=== PATIENT | female | born 1950 | race Caucasian/White ===

== ENCOUNTER → 2021-07-30 12:19 | Outpatient (CLI) | payer MEDICARE, OTHER, SELFPAY ==
[2021-07-30 14:28] LABS: Add Manual Diff / Slide Review NO; Basophils Absolute Auto 100 /uL (0-100); Basophils Percent Auto 0.9 % (0-2); Eosinophils Absolute Auto 200 /uL (0-450); Eosinophils Percent Auto 2.5 % (2-4); Hematocrit 35.5 % (36-46); Lymphocytes Absolute Auto 4000 /uL (1100-4500); Mean Corpuscular HGB Conc 33.8 % (30-36); Mean Corpuscular Hemoglobin 32.9 PG (26-34); Mean Corpuscular Volume 97.3 fL (80-100); Monocytes Absolute Auto 700 /uL (0-900); Monocytes Percent Auto 7.1 % (3-14); Neutrophils Absolute Auto 4700 /uL (1500-7000); Neutrophils Percent Auto 48.5 % (50-75); Platelet Count 316 X10^3/uL (150-400); Red Blood Cell Count 3.65 X10^6/uL (4.0-5.2); White Blood Cell Count 9.7 X10^3/uL (4.5-11.0)
[2021-07-30 14:40] LABS: Hemoglobin A1C% w Est Avg Glu 5.5 % (4.0-6.0)
[2021-07-30 15:37] LABS: BUN Creatinine Ratio 10.9 (6-22); Blood Urea Nitrogen 14 mg/dL (7-17); Calcium 9.1 mg/dL (8.4-10.2); Carbon Dioxide 27 mmol/L (22-32); Chloride 106 mmol/L (98-107); Estimated Glomerular Filt Rate 45 mL/min (>60); Glucose 95 mg/dL (80-110); HEMOLYSIS < 15 (0-50); Potassium 4.3 mmol/L (3.4-5.1); Sodium 140 mmol/L (137-145)
== END ==
PROVIDERS: Family Provider Internal Medicine; PCP Physician Assistant; Referring Provider Orthopaedic Surgery; Visit Provider Orthopaedic Surgery
DX: Z01.818 Encounter for other preprocedural examination (principal); R73.9 Hyperglycemia, unspecified; Z01.812 Encounter for preprocedural laboratory examination; N39.0 Urinary tract infection, site not specified
CPT/HCPCS: 36415; 80048; 83036; 85025; 93005; 93010

== ENCOUNTER → 2021-08-18 12:56 | Outpatient (CLI) | payer MEDICARE, OTHER, SELFPAY ==
[2021-08-18 13:36] LABS: COVID19 -Nasal RAPID Negative (Negative)
== END ==
PROVIDERS: Family Provider Internal Medicine; PCP Physician Assistant; Referring Provider Orthopaedic Surgery; Visit Provider Orthopaedic Surgery
DX: Z20.822 Contact with and (suspected) exposure to COVID-19 (principal)
CPT/HCPCS: 87635; C9803

== ENCOUNTER 2021-08-20 13:25 | Observation (INO) | payer MEDICARE, OTHER, SELFPAY ==
[2021-08-12 12:43] VITALS: BMI 34.3
[2021-08-19] VITALS (10 sets, daily range): BP systolic 103–152; BP diastolic 50–92; PULSE 66–77; RESP 16–18; TEMP 35.7–36.3; O2SAT 93–100; BMI 34.3
--- NOTE | 2021-08-19 08:06 | DI.RAD.S_ITS ---
PROCEDURE: XR KNEE LT 1TO2V INDICATIONS: TKA TECHNIQUE: 2 view(s) of the knee acquired. COMPARISON: [facility], CR, XR KNEE 4+ VIEWS LEFT, 07/30/2021, 10:27. FINDINGS: Bones: Patient is status post knee joint arthroplasty. Hardware components are in expected positions. Visualized bony structures are intact. Soft tissues: Overlying postoperative changes are noted. IMPRESSION: Expected appearance of the left knee total arthroplasty. Dictated by: Agusto Mo M.D. on 08/20/2021 at 8:20 Approved by: Agusto Mo M.D. on 08/20/2021 at 8:21
[2021-08-19] MEDS: VANCOMYCIN 1,000 MG/200 ML PIGGYBACK 200 MG IV (13:10)
[2021-08-19] MEDS: LACTATED RINGERS 1,000 ML 42 ML IV ×2 (13:20→15:57)
[2021-08-19] MEDS: ACETAMINOPHEN 325 MG TABLET 975 MG PO (13:38)
--- NOTE | 2021-08-19 14:01 | PM.PREOP ---
Pre-operative Note COVID-19 COVID-19 status: Negative Interval Note History & Physical reviewed/Exam performed by Physician: Yes Changes to H&P: No
[2021-08-19] MEDS: CEFAZOLIN 2 GM/20 ML SYRINGE IV ×2 (14:35→23:10)
[2021-08-19] MEDS: TRANEXAMIC ACID 1,000 MG VIAL 2000 MG INJ ×2 (14:38→16:40)
--- NOTE | 2021-08-19 14:57 | SUR.OPER ---
Supine on padded OR bed. Pillow under head, arms secured on padded armboards <90 degree abduction. Safety belt across torso. Non-operative leg secured with tape over blanket over lower leg. Operative leg secured in DeMayo positioner. Foam padded brace at thigh of operative leg.
--- NOTE | 2021-08-19 14:58 | SUR.PREOP ---
Block start time [1400] . Monitoring initiated and maintained throughout procedure. Oxygen and medications given per anesthesiologist. Patient remained stable throughout procedure, no adverse reactions noted. Block end time [1407 ].
[2021-08-19] MEDS: BUPIVACAINE 0.25% (PF) 60 ML, EPINEPHrine 0.3 MG INJ (15:20)
[2021-08-19] MEDS: BUPIVACAINE LIPOSOME 266 MG/20 ML VIAL INJ (15:33)
[2021-08-19] MEDS: SODIUM CHLORIDE IRRIG SOLUTION 250 ML, POVIDONE-IODINE SPONGE STICKS 1 APPLIC IRR (16:33)
--- NOTE | 2021-08-19 17:18 | P.OP_ITS ---
Operative Date/Time/Diagnoses Date of procedure: 08/19/21 Time of procedure: 14:10 Pre-op diagnosis: Severe left knee osteoarthritis Post-op diagnosis: same Procedure & Clinicians Procedure: Left total knee arthroplasty Same procedure as scheduled: Yes Indications: The patient has had progressively worsening left knee pain with radiographic changes consistent with arthritis. Non-operative management has failed and the patient has requested total knee replacement. She had severe left knee arthritis and really had moved her knee for about 5 years. She had severe stiffness preoperatively with range of motion from about 20? to about 60-70 degrees. Limits of our ability to completely correct this amount of deformity was discussed in detail. The risks, benefits and alternatives to surgery were discussed with the patient prior to proceeding. Risks discussed included, but were not limited to, failure to relieve pain, stiffness, infection, nerve damage, deep venous thrombosis, pulmonary embolism, stroke, coma, heart attack, permanent paralysis and , as well as the potential need for eventual revision of the prosthetic. Surgeon: Mary Barrera Manager Home Improvement: Angel Cordero Anesthesia Type: General and Spinal Operative Notes Findings: Severe left knee osteoarthritis with a bony block posteriorly as well as severe patellofemoral arthritis with severe restricted range of motion even under anesthesia until a very extensive osteophytes were removed for adequate bone quality and stability. For operative range of motion 0-125 with acceptable tracking of the patella, significantly deficient lateral femoral condyle with severe wear on severe lateral tibial wear. Closure Type: primary Specimen(s): none sent Prosthetic devices, grafts, tissues, transplants, or devices: [employer]rera [employer] Journey BCS 2 size 4 femur, size 5 tibia, +11 constrained poly, 32 x 7-1/2 mm patella Applied: drain(s) Estimated Blood Loss (mL): 250 Blood products transfused: none Tourniquet time (min): 108 Procedure in detail: The patient was seen in the pre-operative area, where the patient identified the left knee as the operative site and this was marked with my initials. The patient received pre-operative antibiotics, and was taken to the operating room and placed on the operative table in the supine position. After satisfactory anesthesia, a multimedia services manager out was performed. The left leg was encircled with a tourniquet about the proximal thigh, and the leg was prepared from the toes to the tourniquet with ChloroPrep in the usual fashion and draped through sterile drapes. The leg was elevated and exsanguinated with Eschmark bandage and the tourniquet inflated to [250] mmHg pressure. Her initial on table range of motion was from about 20? to 70?. The knee was approached through an approximately 18 cm incision centered over the patella and carried into the knee through a medial parapatellar arthrotomy. A portion of the medial and lateral meniscus was resected. Soft tissue was carefully mobilized around the patella the patella was measured with a caliper. There were severe osteophytes around the patella. Her initial parapatellar arthrotomy was carried proximally with slight lateral deviation order to allow for repair of the quad mechanism but adequate mobilization of the patella. Extensive osteophytes were meticulously removed from the patella after carefully freeing soft tissue and removing any hypertrophied synovium in the lateral gutter. The patella was meticulously mobilized. There was a free fragment superiorly and superolateral consistent with a part partial by part up patella. There is minimal soft tissue attachment to this fragment. Bone was resected from the patella and the patellar height was reconstituted with up an appropriate sized patellar component. A cover was then placed on the patella. A small amount of additional medial and lateral meniscus was resected. The distal femur was cut at 5?. A [+2] cut was used. There were severe osteophytes around the femur with marked lateral femoral condylar loss and large osteophytes medially. I meticulously resected a significant portion of osteophytes prior to starting the initial cut. The 2 mm cut did not contact the distal lateral femoral condyle. It looked like we should resect additional bone and an additional 4 mm of bone was resected. This gave adequate medial femoral condylar cut and some exposed bone on the lateral femoral condyle but it was noted that it was deficient. It looked like an appropriate distal femoral cut and the cut was made without difficulty. An extramedullary guide was used for the tibial cut. 10 mm was resected off the least affected side. This resulted in resecting about 1-2 mm in the posterolateral tibia which was the most worn region. An additional lateral release was performed in order to allow adequate lateral spacing. Tibia was prepared. The rotation was assessed. The patient was placed in extension residual medial and lateral meniscus as well as any residual bone was carefully resected. [No] additional tibia was resected. Hemostasis was achieved especially posteriorly. Additional local was injected in to the posterior capsule. The extension gap was assessed and additional releases for gap balancing were performed as necessary. It was checked with the gap bottling line attendant. The femoral block was placed. There were very extensive osteophytes in the posterior medial and posterior lateral femoral region. There was also a massive loose body in the posterolateral compartment. Multiple fragments were removed about the size of a golf ball from both from posterior medially and posterior laterally. The femoral component was trial was placed and the notch was finished. The rotation was assessed and the appropriate size femoral guide was placed on the distal femur and finishing cuts were made. There was no evidence of notching. The anterior, posterior and chamfer cuts were then made. The posterior osteophytes and soft tissues were then removed. The posterior capsule was injected with part of a mixture of 60 ml 0.25% Marcaine mixed with 20 ml Exparel for post operative pain control. The remainder of this mixture was injected into the capsule and subcutaneous tissues during cement curing. The tibial and femoral components were then placed and the knee placed through a range of motion. Range of motion was [0-130], with good stability throughout the range. The trials were then removed, and the tibia was finished. Drill holes and the punch were used to improve cementing in the lateral compartment both on the lateral femoral condyle and the lateral tibial plateau. The bone was prepared with pulsatile lavage, and dried with a sponge. Cement was applied and the final prosthetics placed. Excess cement was removed during and after cement curing. A brief Betadine soak was performed. I did a trial reduction with both the nonconstrained in the constrained polyethylene. She had such severe deformity preoperatively and we had adequately loosen the knee and I felt she was a little better with a constrained polyethylene. After confirming there was no extruded cement posteriorly, the final tibial insert was placed. The knee was copiously irrigated and the tourniquet deflated. Hemostasis was obtained with the Bovie cautery. There was mild bleeding but not severe and a good capsular closure was obtained. A drain was placed and brought out superolaterally. It was clamped. The capsule was closed with interrupted nonabsorbable suture. The subcutaneous layer was closed with barbed sutures, and the skin with a running 3-0 V-Lock suture and skin faustina. 4x4s were used to reinforce around the drain site. A cally dressing was applied and the patient was taken to recovery having tolerated the procedure well. Complications: none Post-operative Condition: stable Disposition: Acute Care Plan for aftercare: The patient will be maintained on a standard total knee replacement protocol with weight bearing as tolerated. The patient will receive aspirin and sequential compression devices for DVT prophylaxis. The patient will be discharged home when safe for the home environment.
--- NOTE | 2021-08-19 17:52 | SUR.PHASEI ---
Pt ready to go upstairs Report given to Erasmo FLOWER .
[2021-08-19] MEDS: ACETAMINOPHEN 325 MG TABLET 650 MG PO (19:10)
[2021-08-19] MEDS: LACTATED RINGERS 1,000 ML 100 ML IV (19:11)
[2021-08-19] MEDS: ALPRAZolam 0.5 MG TABLET 1 MG PO (19:54)
[2021-08-19] MEDS: LITHIUM 150 MG IR CAPSULE PO (20:56)
[2021-08-19] MEDS: GABAPENTIN 600 MG TABLET PO (20:57)
[2021-08-19] MEDS: DOCUSATE 100 MG CAPSULE PO (20:57)
[2021-08-19] MEDS: ASPIRIN EC 81 MG TABLET PO (20:57)
[2021-08-19] MEDS: IBUPROFEN 400 MG TABLET PO (20:57)
[2021-08-19] MEDS: OXYCODONE IR 10 MG TABLET PO (20:58)
[2021-08-19] MEDS: lamoTRIgine 100 MG TABLET 150 MG PO (21:01)
[2021-08-20] MEDS: IBUPROFEN 400 MG TABLET PO ×5 (00:03→20:25)
[2021-08-20] MEDS: OXYCODONE IR 10 MG TABLET PO ×6 (00:03→20:25)
[2021-08-20] MEDS: ACETAMINOPHEN 325 MG TABLET 650 MG PO ×3 (00:04→12:12)
[2021-08-20 04:53] LABS: Hematocrit 31.5 % (36-46); Hemoglobin 10.6 g/dL (12.0-16.0)
[2021-08-20] MEDS: LACTATED RINGERS 1,000 ML 100 ML IV (05:15)
[2021-08-20 05:39] VITALS: BP 123/76; PULSE 76; RESP 16; TEMP 36.3; O2SAT 99
[2021-08-20] MEDS: CEFAZOLIN 2 GM/20 ML SYRINGE IV (07:04)
--- NOTE | 2021-08-20 07:50 | P.DS_ITS ---
History of Present Illness History of Present Illness Date Patient Seen: 08/20/21 Time Patient Seen: 07:51 Chief complaint: Left knee pain Narrative: Patient states her pain is mild. Denies fever or chills. No nausea /vomiting. Patient does have assistance at home Discharge Providers Provider Discharge Date: 08/20/21 Primary care physician: Whitney Lowry PA-C Consults: 08/19/21 08:06 Consult to Anesthesiology Routine Comment: Consulting Provider: Anesthesiologist Reason for consultation: Regional block for post operative pain control 08/19/21 17:52 Consult to Discharge Planning Routine Comment: Consult to Physical Therapy Evaluate & Treat Comment: Physician Instructions: postop TKA protocol Consult to Respiratory Therapy Evaluate & Treat Comment: Physician Instructions: Evaluate and treat 08/19/21 18:27 Consult to Dietitian, Adult Routine Comment: Reason For Exam: post op care Discharge provider: Angel Cordero PA-C Summary Hospital Course Discharge Diagnosis: Severe left knee osteoarthritis Hospital Course: Left total knee arthroplasty Same procedure as scheduled: Yes Indications: The patient has had progressively worsening left knee pain with radiographic changes consistent with arthritis. Non-operative management has failed and the patient has requested total knee replacement.? She had severe left knee arthritis and really had moved her knee for about 5 years.? She had severe stiffness preoperatively with range of motion from about 20? to about 60-70 degrees.? Limits of our ability to completely correct this amount of deformity was discussed in detail.? The risks, benefits and alternatives to surgery were discussed with the patient prior to proceeding. Risks discussed included, but were not limited to, failure to relieve pain, stiffness, infection, nerve damage, deep venous thrombosis, pulmonary embolism, stroke, coma, heart attack, permanent paralysis and , as well as the potential need for eventual rev ision of the prosthetic. Surgeon: Mary Barrera Information Technology Analyst: Angel Cordero Anesthesia Type: General and Spinal Operative Notes Findings: Severe left knee osteoarthritis with a bony block posteriorly as well as severe patellofemoral arthritis with severe restricted range of motion even under anesthesia until a very extensive osteophytes were removed for adequate bone quality and stability.? For operative range of motion 0-125 with acceptable tracking of the patella, significantly deficient lateral femoral condyle with severe wear on severe lateral tibial wear. Closure Type: primary Specimen(s): none sent Prosthetic devices, grafts, tissues, transplants, or devices: [employer] Journey BCS 2 size 4 femur, size 5 tibia, +11 constrained poly, 32 x 7-1/2 mm patella Applied: drain(s) Estimated Blood Loss (mL): 250 Blood products transfused: none Tourniquet time (min): 108 Patient admitted to the hospital for the above-mentioned procedure. Patient consented to the same. Patient taken operating room underwent left total knee arthroplasty on August 19, 2021. Patient back in her room recovering well as in stable condition. Patient will mobilize with physical therapy this morning. Patient will be discharged home today after physical therapy if safe for home environment. Exam Vital Signs (past 8 hours): - 08/20/21 05:39 Temperature 97.3 F L Pulse Rate 76 Respiratory Rate 16 Blood Pressure 123/76 Pulse Oximetry 99 Oxygen Delivery Method Room Air Oxygen Flow Rate 0 Narrative Exam Narrative: 70-year-old female resting comfortably in bed in no apparent distress. Cally dressing on and functioning. Scant drainage from the wound VAC site. Motor functions intact bilateral lower extremities. Sensation grossly intact to light touch bilateral lower extremities. Objective Labs Result Diagrams: 08/20/21 04:23 Labs: Laboratory Results - last 24 hr 08/20/21 04:23 Hgb 10.6 L Hct 31.5 L PFSH Medical History Abdominal pain Depression Easy bruisability Fibromyalgia HTN (hypertension) HX: benign breast biopsy Osteoarthritis Pneumonia (~2011) Short-term memory loss (2009) Stomach tumor (benign) TBI (traumatic brain injury) (2009) Surgical History History of section History of hysterectomy History of left cataract extraction Hx of cholecystectomy Hx of LASIK Social History household members: none Smoking Status: Never smoker alcohol intake: never Discharge Assessment & Plan Assessment and Plan Assessment: Patient progressing as expected status post left total knee arthroplasty Plan of Treatment: Mobilize with physical therapy Patient be maintained on total knee protocol Multimodal pain management Discharge home today after physical therapy if safe for home environment. Discharge Plan Discharge Plan Patient Disposition: Home Discharge orders & Medications Discharge Orders: Discharge (Order); Ordered 08/20/21 Ordered By: Angel Cordero Prescriptions: New acetaminophen 325 mg Tablet 650 mg PO Q6HR Qty: 60 0RF polyethylene glycol 3350 17 gram Powder In Packet 17 gm PO DAILY PRN (Reason: Constipation) Qty: 20 0RF aspirin 81 mg Tablet,Delayed Release (Dr/Ec) 81 mg PO BID Qty: 60 0RF ibuprofen 400 mg Tablet 400 mg PO Q4HR Qty: 60 0RF oxycodone 5 mg Tablet 5 mg PO Q3HR PRN (Reason: Pain, Moderate (4-6)) Qty: 60 0RF Continued losartan 50 mg Tablet 50 mg PO DAILY 0RF gabapentin 600 mg Tablet 600 mg PO BID 0RF alprazolam 1 mg Tablet 1 mg PO Q8H 0RF lamotrigine 100 mg Tablet 100 mg PO SEEINSTR 0RF Rx Instructions: 100mg qam, 150mg qpm rosuvastatin 10 mg Tablet 10 mg PO DAILY 0RF lithium carbonate 150 mg Capsule 150 mg PO BEDTIME 0RF Follow up/Referrals: Whitney Lowry PA-C [Primary Care Provider] - Mary Barrera MD [Physician] - (2 weeks) Diet/Activity/Treatments Diet: Diet as Tolerated Activity: Weight-bearing as tolerated Cold/Heat Therapy: Apply ice to knee as needed Skin/Wound/Dressing Care Report to your healthcare provider any signs of infection, such as:: chills, fever, increased pain, unusual drainage and unusual redness Dressing: Keep dressing clean and dry, Terry wrap may be removed in 48-72 hours, leave dressing in place, cally dressing will automatically turned off in 5-7 days, cut tubing at base of dressing and cover with x-ray and he said from cally box, monitor can be thrown away and batteries recycled. Visit Report/Discharge Packet Instructions: DI for Knee Replacement Stand Alone Forms: Surgery Discharge Discharge Data Primary Care Provider: Whitney Lowry Attending Provider: Mary Barrera
[2021-08-20] MEDS: ONDANSETRON 4 MG/2 ML INJ IV ×2 (08:27→23:39)
[2021-08-20] MEDS: ASPIRIN EC 81 MG TABLET PO ×2 (08:30→20:25)
[2021-08-20] MEDS: ATORVASTATIN 20 MG TABLET PO (08:30)
[2021-08-20 08:31] VITALS: BP 116/66; PULSE 77; RESP 18; TEMP 36.8; O2SAT 99
[2021-08-20] MEDS: DOCUSATE 100 MG CAPSULE PO ×2 (08:31→20:24)
[2021-08-20] MEDS: GABAPENTIN 600 MG TABLET PO ×2 (08:31→20:24)
[2021-08-20] MEDS: lamoTRIgine 100 MG TABLET PO (08:31)
--- NOTE | 2021-08-20 08:33 | CM.DANOTE ---
DCP: Payor: Medicare PCP: Whitney Flores MD Pt is a 70 y.o. M who was admitted for post left total knee arthroplasty. Pt has a histroy of arthritis, edpression, fibromyalgia, hypertension, and obesity. Pt has been having pain in the left knee and therefore MD recommends this procedure. DCP met with pt bedside this AM. Pt was eating breakfast but states she is nauseous and might need to throw up. RN provided bag to pt. ENTRY ANALYST helped with cleaning up pt. DCP verbalized she would come back but pt states she is ok to talk. DCP explained role. Pt states she lives in a 55 y.o and older community and pays for [facility] services such as nursing who would help her if she needed it. Pt states she lives alone but relies on friends for support. Pt states she has been driving but recently stopped due to pain. Pt states that when she is able to discharge, her friend Yudi will pick her up. Pt states MD came by this morning and said depending on how pt does with PT, she would be able to discharge today. Pt states she hasn't used HH before but if needed she would like that. LLUSTRE updated and instructed pt to call. DCP called [facility] to inquire about services provided. [facility] states that they would help with ADL's but if PT/Ot was needed, HH would need to be ordered. DCP verbalized understanding. DCP to continue to follow pt case. P: Per MD, if pt able to work with PT and they feel she could go home, pt can be discharged today. Pt plan is home via Yudi zepeda POV with possible HH. Florecita Acevedo RN/SANGEETHA Discharge Planning/Care Management CM Discharge Assessment Start: 08/20/21 08:29 Freq: Status: Active Protocol: Document 08/20/21 08:30 MARY GRACE (Rec: 08/20/21 08:31 MARY GRACE [id number]) Discharge Planning Assessment Assigned Continuity Writer Florecita Acevedo RN/SANGEETHA Advance Directives? No History Provided By Patient Prior Living Arrangements Apartment/Condo Comment 57 y.o. and older community in [place] Household Members none Type of transporation used prior to Drives own vehicle admit Comment But recently stopped last week . Relies on friends Independent with ADL's Yes Is patient alert and oriented? Yes Caregiver for Another No Discharge Plan Home Transportation Arrangement POV via Friend Yudi Referrals Initiated None needed Additional Comment At this time. Pending PT eval . Whiteboard Updated in Patient Room with Yes name and ext. # of Continuity Writer Comment Instructed to call Review Status In Process Please Provide Date Initial DC 08/20/21 Assessment Was Performed Next Review Type Continued Stay Review Pre-Anesthesia Assessment Start: 08/12/21 12:43 Freq: Status: Active Protocol: Document 08/12/21 12:43 CAB (Rec: 08/12/21 13:41 CAB [id number]) Pre-Anesthesia Assessment Patient Information Reviewed Via Phone Assessment Assessment Completed With Patient Diagnostic Results BMP/CMP,CBC,Urinalysis Comment Labs/ECG @ [facility] 07/30/21, COVID screen @ 08/18/21 Seen Specialist in Last 12 Months Yes Specialist Seen Orthopedist Primary Language Slovenian Layout Man Required No Height 162.56 cm Weight 90.718 kg Body Mass Index (BMI) 34.3 Hearing Ability Normal Visual Assist Magnifying Glass Dentition Type Teeth, Natural Present Barriers to Learning None Hx Anesthesia Reactions Yes: I have a real problem waking up and I'm freezing Additional comment Pt DOES NOT want a spinal Hx Family Anesthesia Reaction No Hx Malignant Hyperthermia No Hx Blood Transfusions No Anesthesia Review Requested No alcohol intake never Smoking Status Never smoker Substance Use Type marijuana Comment Advised not to smoke marijuana 24 hours prior to surgery Pain Present Pain Reported Musculoskeletal Symptoms Abnormal Gait,Difficulty Walking,Joint Pain History of Falling (Recent or History of Yes ) Patient is completely paralyzed or No completely immobile Prosthesis or Orthotic Device Front Wheel Walker Mental Status Oriented to own ability Is patient on oxygen? No Does patient have CADE/SOB No Hx Sleep Apnea No Currently Taking a Beta Cherelle No Can You Climb a Flight of Stairs Without Yes SOB Hx Chest Pain No Hx SOB No Hx Syncope or Dizziness No Anti-Coagulant Therapy No Has a Bronc Breaker No Cardiac Testing No Hx Pacemaker/ICD No Pacemaker Rep Required? No Cardiac Clearance Received Not Applicable Diet Type At Home Regular dysphagia No Gastrointestinal Symptoms Abdominal Pain,Diarrhea Urinary Catheter Present No Hx Urinary Self Catheterization No Diabetes No Patient No Lactating No Presence of External or Internal Medical Yes: Left eye IOL Devices Have you had any close contact with No someone diagnosed with COVID-19? Received a COVID vaccine? Yes: Declines booster at present Marital Status Lives With none Prior Living Arrangements Apartment/Condo Does the Patient Have Assistance After Yes: Residential care unit Surgery where she lives w/nurses Patient Discharge Plan Description Other Comment Pt not advised on length of stay per surgeon Feels Safe in Current Environment Yes Been Physically Hurt or Threatened By a No Person in Current Environment Do you have thoughts of harming yourself None or others? Are you currently considering suicide? No Do you have a plan to hurt yourself or No Plan others? Do You Have Any Spiritual Beliefs That No May Affect Your HC Choices? Do You Have Any Cultural Practices That No May Affect Your HC Choices? Comment Alevism Who Can We Speak to About Patient's Care Family, friends Identifying Code for Release of Patient Declines to issue Information Health Care Proxy/Next of Kin Yudi Thomas (good friend) Health Care Proxy Emergency Contact Name Yudi Thomas (good friend) Emergency Contact Advance Directives? No Power of Belt Puncher No PAC Instructions Do not shave/clip surgical site,Durable medical equipment ,Medications to take/avoid, Nasal antibiotic,No ETOH/ petroleum product on skin DOS, NPO,Post-op transportation,Pre -surgical wash,Sensory aids, Sturdy shoes/comfortable clothes,Do not bring valuables and remove jewelry
--- NOTE | 2021-08-20 08:45 | PT.IIE ---
Current Diagnoses Unilateral primary osteoarthritis, left knee (08/19/21) Surgery Performed Operation Date: 08/19/21 14:30 Actual Procedures p Total Knee Arthroplasty(Left) - Mary Barrera MD Medical History (Last Reviewed 08/20/21 @ 07:53 by Angel Cordero PA-C) Abdominal pain Depression Easy bruisability Fibromyalgia HTN (hypertension) HX: benign breast biopsy Osteoarthritis Pneumonia (~2011) Short-term memory loss (2009) Stomach tumor (benign) TBI (traumatic brain injury) (2009) Physical Therapy Inpatient Evaluation/Re-Eval M1 PT/OT-IP Prior Functional Status Start: 08/20/21 11:33 Freq: NEEDED Status: Active Protocol: Document 08/20/21 08:45 AB (Rec: 08/20/21 11:46 AB [id number]) Medical Review Prior Functional Status Medical History Reviewed Yes Communication able to make needs known Mobility and Gait pt stated that she is independent with all mobilities and ambulation without AD Social History Household Members none Living Arrangements Apartment/Condo Number of Stairs To Enter/Railing? pt stated that she lives in a senior housing community and has a residential care unit where there is a nurse to assist residents that needs assistance. pt stated that she rented an studio apartment for ~ 1 month for the residential care unit. no steps to enter but has to ambulate quite a ways Home Environment Standard Height Toilet,Walk in Shower Home Equipment Front Wheel Walker,Raised Toilet Seat Without Armrests, Grab Bars In Shower Additional Social History Comment has toilet safety frame M2 PT-IP Current Condition Start: 08/20/21 11:33 Freq: NEEDED Status: Active Protocol: Document 08/20/21 08:45 AB (Rec: 08/20/21 11:46 AB [id number]) Physical Therapy Current Condition Current Condition Evaluation Date 08/20/21 Treatment Diagnosis s/p L TKA; difficulty in walking Onset Date 08/19/21 M3 PT-IP Subjective Start: 08/20/21 11:33 Freq: NEEDED Status: Active Protocol: Document 08/20/21 08:45 AB (Rec: 08/20/21 11:46 AB [email or web address]) Subjective Physical Therapy Visit Type Type Initial Evaluation Visit Start Time 08:45 Visit Stop Time 09:35 Total Visit Minutes 50 Number of ENGAGEMENT SPECIALIST Visits 0 Physical Therapy Visit Comments Patient Comments agreeable to do PT Therapy Pain Assessment Pain When Pain Assessed At Rest Pain Present Pain Present Pain Reported Location Left Knee Intensity 7 Scale Used Numeric (0 - 10) Pain Management Techniques Apply Cold,Distraction, Modification of Treatment,Re- positioning,Timing of Activity with Medications M4 PT-IP Mobility and Gait Start: 08/20/21 11:33 Freq: NEEDED Status: Active Protocol: Document 08/20/21 08:45 AB (Rec: 08/20/21 11:46 AB [email or web address]) PT-Bed Mobility Assessment Supine to Sit Supine to Sit Moderate Assistance Sit to Supine Sit to Supine Moderate Assistance PT-Transfer Assessment Sit to and From Stand Sit to and from Stand Maximum Assistance,1 Person Assistance,Use of Upper Extremities Equipment Transfer Assistive Device Gait Belt,Front Wheeled Walker Orthotic/Prosthetic Devices or Brace: No Transfers Transfer Destination Bed,Chair Transfer Ability Level of Assist 1 Person Assistance,Use of Upper Extremities Comments Mobility Comments completed supine to sit mod A and cues. able to sit on EOB SBA. completed sit to stand max A and step transfer to chair mod A using FWW. agreed to ambulate more in room using FWW mod A 20 ft. (+) R hip/ knee crepitus. pt stated that she needs surgery on RLE as well. pt agreed to sit on the chair. positioned. ice pack provided. call light and table placed within reach. Gait Assessment Gait Gait Assistance Required: Moderate Assistance Distance (Feet) 20 Able to Maintain Weight Bearing Status Yes During Gait Assistive Devices Assistive Device Gait Belt,Front Wheeled Walker Orthotic/Prosthetic Devices or Brace: No Gait Deviations General Gait Pattern Antalgic,Decreased Stride Length,Decreased Feet Clearance Factors Limiting Gait Function Factors Limiting Gait Function Decreased Activity Tolerance, Decreased Strength,Pain,Poor Balance,Poor Safety Awareness PT-Balance Assessment Sitting Balance and Reactions Static Sitting Balance Ability Good Dynamic Sitting Balance Ability Good Standing Balance and Reactions Static Standing Balance Ability Fair Dynamic Standing Balance Ability Fair Device Used FWW M5 PT-IP Objective Assessments Start: 08/20/21 11:33 Freq: NEEDED Status: Active Protocol: Document 08/20/21 08:45 AB (Rec: 08/20/21 11:46 AB [email or web address]) Orientation Orientation/Cognition Level of Alertness Alert Orientation Name,Place,Situation Language Function Ability No Deficits Noted Safety Awareness Decreased Safety Awareness Memory Description No Deficits Noted Gross Range of Motion Lower Extremity ROM Impairments R knee flexion: ~ 50 deg R knee extension: ~ 30 deg less to 0 Strength Comments Strength Comments LLE: 3+/5 RLE: 4-/5 Sensation Assessment Sensation Gross Sensation WNL Muscle Tone Muscle Tone WNL Yes M6 PT-IP Treatment Start: 08/20/21 11:33 Freq: NEEDED Status: Active Protocol: Document 08/20/21 08:45 AB (Rec: 08/20/21 11:46 AB [id number]) Physical Therapy Treatment Education Education Provided Precautions,Weight Bearing Status,Post-Op Packet,Safety M7 PT-IP Assessment and Plan Start: 08/20/21 11:33 Freq: NEEDED Status: Active Protocol: Document 08/20/21 08:45 AB (Rec: 08/20/21 11:46 AB [email or web address]) PT Summary Assessment and Plan Potential Rehabilitation Potential Fair Status of Condition at Evaluation Evolving Summary Impairments Pain,ROM,Strength,Balance, Coordination,Sensation,Tone, Cognition,Bed Mobility, Transfers,Gait,Activity Tolerance Assessment Summary pt requiring mod to max A with mobility using FWW. d/c plan depending on progress. pt stated that she arranged to go to a residential care unit in her community and a nurse will be able to assist as needed with a call light. will continue to assess progress for safe d/c plan. Goals Bed Mobility Goal Independent Transfer Goal Independent,Front Wheeled Walker Gait Goal Independent,Front Wheel Walker Gait Distance 200 Days to Meet Goals 10 Frequency of Treatment Frequency Of Treatment Twice a Day Treatment Plan Physical Therapy Treatment Plan Bed Mobility Training,Transfer Training,Gait Training, Therapeutic Exercise,Balance Retraining,Post Op Education, Discharge Planning,Hot or Cold Pack,Neuromuscular Re-ed, Coordination Retraining,Manual Therapy Weight Bearing Status Weight Bearing Status Weight Bear as Tolerated Allowed Weight Bearing Amount (enter % LLE WBAT or #) (%) Recommendations To Nursing Amount of Assist Needed 1 Person Assist Discharge Recommendations PT Discharge Recommendations Home with 05/10 Assist Available,Home Health Transportation Needs at Discharge Private Vehicle,Wheelchair/ Cabulance
[2021-08-20] MEDS: LOSARTAN 50 MG TABLET PO (09:37)
[2021-08-20] MEDS: ALPRAZolam 0.5 MG TABLET 1 MG PO (09:45)
--- NOTE | 2021-08-20 12:22 | DIET.CONS ---
Dietary Consultation Note Admission Date: Assessment: 70y F d1 s/p knee surgery referred to nutrition for acute morning emesis. RD alerted pt had N/V when breakfast was delivered this am. Pt tolerating cold diced peaches at time of RD visit, pt had been medicated c zofran. Pt on narcotic pain meds. Ht: 162.56 cm Wt: 90.718 kg BMI: 34.3 Last BM: 08/19/21 (08/19/21 23:43) MNA: 8 Pablo Score: 20 Diet: 08/19/21 Dinner General (Regular) Diet Diet Modifications: Labs: Hgb 10.6 g/dL (12.0-16.0) L 08/20/21 04:23 Hct 31.5 % (36-46) L 08/20/21 04:23 Nutrition Diagnosis: none Interventions: 1. Educated pt on post-surgical and medication related N/V as well as hot foods having stronger scents which can aggravate nausea. Helped pt order lunch and dinner today, cold items. Educated pt on need for protein for healing. Sending ONS c lunch to support protein needs. Pt given suggestions for high PRO easy to prepare options for two weeks after d/c. Electronically Signed by: Eden Feliciano 08/20/21 12:22 Clinical Dietitian [address] [address]
--- NOTE | 2021-08-20 12:41 | CM.DPNOTE ---
Faxed referral to [facility] per Florecita. Dana Jorge CM Assist.
[2021-08-20 12:50] VITALS: BP 107/63; PULSE 79; RESP 16; TEMP 36.2; O2SAT 100
--- NOTE | 2021-08-20 13:10 | PT.IPTN ---
Current Diagnoses Unilateral primary osteoarthritis, left knee (08/19/21) Surgery Performed Operation Date: 08/19/21 14:30 Actual Procedures p Total Knee Arthroplasty(Left) - Mary Barrera MD Physical Therapy Treatment Note M2 PT-IP Current Condition Start: 08/20/21 11:33 Freq: NEEDED Status: Active Protocol: Document 08/20/21 08:45 AB (Rec: 08/20/21 11:46 AB [email or web address]) Physical Therapy Current Condition Current Condition Evaluation Date 08/20/21 Treatment Diagnosis s/p L TKA; difficulty in walking Onset Date 08/19/21 M3 PT-IP Subjective Start: 08/20/21 11:33 Freq: NEEDED Status: Active Protocol: Document 08/20/21 13:10 AB (Rec: 08/20/21 14:44 AB [email or web address]) Subjective Physical Therapy Visit Type Type Treatment Note Visit Start Time 13:10 Visit Stop Time 13:30 Total Visit Minutes 20 Number of SIGNAL MAINTENANCE TECHNICIAN Visits 0 Physical Therapy Visit Comments Patient Comments agreeable to do PT Therapy Pain Assessment Pain When Pain Assessed At Rest Pain Present Pain Present Pain Reported Location Left Knee Intensity 7 Scale Used Numeric (0 - 10) Pain Management Techniques Distraction,Elevation, Modification of Treatment, Timing of Activity with Medications M4 PT-IP Mobility and Gait Start: 08/20/21 11:33 Freq: NEEDED Status: Active Protocol: Document 08/20/21 13:10 AB (Rec: 08/20/21 14:44 AB [email or web address]) PT-Bed Mobility Assessment Supine to Sit Supine to Sit Standby Assistance PT-Transfer Assessment Sit to and From Stand Sit to and from Stand Maximum Assistance,1 Person Assistance,Use of Upper Extremities Equipment Transfer Assistive Device Gait Belt,Front Wheeled Walker Orthotic/Prosthetic Devices or Brace: No Transfers Transfer Destination Bedside Commode Transfer Ability Level of Assist Maximum Assistance,1 Person Assistance,Use of Upper Extremities Comments Mobility Comments pt completed supine to sit SBA . completed sit to stand x 4 attempts max A with one LOB posteriorly on initial standing. pt presents with stooped posture and increase L knee flexion in standing. (+) R hip/knee crepitus during mobility. completed ambulation in room using FWW mod to max A and max cues ~ 25 ft. presents with unsteady gait with occasional side tilting or LOB requiring max A for steadiness. pt requested to use the toilet but refused to walk to the toilet. stated that she will use the bedside commode. pt sat on EOB. positioned bedside commode. pt completed sit to stand max A and step transfer to bedside commode mod to max A and max cues using FWW. pt wants to be left alone. call light placed within reach. informed nurse. Gait Assessment Gait Gait Assistance Required: Moderate Assistance,Maximum Assistance,1 Person Assist Distance (Feet) 25 Able to Maintain Weight Bearing Status Yes During Gait Assistive Devices Assistive Device Gait Belt,Front Wheeled Walker Orthotic/Prosthetic Devices or Brace: No Gait Deviations General Gait Pattern Antalgic,Decreased Stride Length,Decreased Feet Clearance,Flexed Trunk,Step-to Gait Factors Limiting Gait Function Factors Limiting Gait Function Decreased Activity Tolerance, Decreased Strength,Difficulty Following Directions,Limited Range of Motion,Pain,Poor Balance,Poor Safety Awareness M5 PT-IP Objective Assessments Start: 08/20/21 11:33 Freq: NEEDED Status: Active Protocol: Document 08/20/21 08:45 AB (Rec: 08/20/21 11:46 AB [email or web address]) Orientation Orientation/Cognition Level of Alertness Alert Orientation Name,Place,Situation Language Function Ability No Deficits Noted Safety Awareness Decreased Safety Awareness Memory Description No Deficits Noted Gross Range of Motion Lower Extremity ROM Impairments R knee flexion: ~ 50 deg R knee extension: ~ 30 deg less to 0 Strength Comments Strength Comments LLE: 3+/5 RLE: 4-/5 Sensation Assessment Sensation Gross Sensation WNL Muscle Tone Muscle Tone WNL Yes M6 PT-IP Treatment Start: 08/20/21 11:33 Freq: NEEDED Status: Active Protocol: Document 08/20/21 13:10 AB (Rec: 08/20/21 14:44 AB [email or web address]) Physical Therapy Treatment Education Education Provided Safety M7 PT-IP Assessment and Plan Start: 08/20/21 11:33 Freq: NEEDED Status: Active Protocol: Document 08/20/21 13:10 AB (Rec: 08/20/21 14:44 AB [email or web address]) PT Summary Assessment and Plan Potential Rehabilitation Potential Fair Summary Impairments Pain,ROM,Strength,Balance, Coordination,Sensation,Tone, Cognition,Bed Mobility, Transfers,Gait,Activity Tolerance Progress Towards Goals Slow Progress due to Pain,Slow Progress due to Activity Tolerance Assessment Summary pt requiring max A with sit to stand and mod to max A with ambulation using FWW and unable to ambulate much. (+) LOB with sit to stand initial standing and during ambulation requiring max A for steadiness and recovery. Pt will not have 24/ assist available at home and at this time will require SNF rehab. informed correctional casework specialist regarding pt's mobility assistance. will continue to assess progress. Goals Bed Mobility Goal Independent Transfer Goal Independent,Front Wheeled Walker Gait Goal Independent,Front Wheel Walker Gait Distance 200 Days to Meet Goals 10 Frequency of Treatment Frequency Of Treatment Twice a Day Treatment Plan Physical Therapy Treatment Plan Bed Mobility Training,Transfer Training,Gait Training, Therapeutic Exercise,Balance Retraining,Post Op Education, Discharge Planning,Hot or Cold Pack,Neuromuscular Re-ed, Coordination Retraining,Manual Therapy Weight Bearing Status Weight Bearing Status Weight Bear as Tolerated Allowed Weight Bearing Amount (enter % LLE WBAT or #) (%) Recommendations To Nursing Amount of Assist Needed 1 Person Assist Discharge Recommendations PT Discharge Recommendations SNF Rehab Transportation Needs at Discharge Wheelchair/Cabulance
--- NOTE | 2021-08-20 15:16 | CM.DPC ---
Addendum entered by Florecita Acevedo R.N. 08/20/21 15:59: Spoke with Virginia at . Per August, they will accept her if she is agreeable to getting a Covid booster. DCP talked with pt to inquire and pt states she will get it if she has to. Virginia is able to get the injection tonight from pharmacy and will be able to give to pt tomorrow upon admit. DCP to inform the team of plan and continue to follow. DCP to send PASRR. P: Pt to d/c to SNF once medically cleared. Florecita Acevedo RN/SANGEETHA Original Note: DCP Cont: DCP spoke with PT and per Deysi, she is recommending SNF placement as pt is max assist. Pt is having a slower progress due to pain. Pt is a SDC status and would have to go to SNF under a waiver. DCP sent referrals to [facility], and [facility]. Pt is not discharging today due to current status. DCP to continue to follow and coordinate care for this pt. referral also sent to [facility] this afternoon. P: Once medically stable for discharge, pt to discharge to SNF via transport. Florecita Acevedo RN/MIRIAMP
--- NOTE | 2021-08-20 15:17 | PC.NURSE ---
HV had 70cc out. it also leaked and soaked up 2 abd pads. I then dc'd it @1430. pt tolerated well
[2021-08-20] MEDS: CALCIUM CARBONATE 500 MG TAB PO (16:22)
[2021-08-20 16:58] VITALS: BP 152/88; PULSE 87; RESP 16; TEMP 36; O2SAT 94
[2021-08-20] MEDS: ONDANSETRON 4 MG ODT PO (19:25)
[2021-08-20 19:58] VITALS: BP 136/88; PULSE 91; RESP 16; TEMP 36.5
[2021-08-20] MEDS: LITHIUM 150 MG IR CAPSULE PO (20:24)
[2021-08-20] MEDS: lamoTRIgine 100 MG TABLET 150 MG PO (20:25)
[2021-08-21 02:15] VITALS: BP 148/87; PULSE 100; RESP 16; TEMP 36.4; O2SAT 96
--- NOTE | 2021-08-21 02:21 | PC.NURSE ---
Patient vomited roughly 750mL emesis, dark brown, over the course of the shift. Complaining of intense, sharp pain right upper abdomen. Tender to touch. Dr. Arslan Carbajal contacted and notified, received one-time order for Reglan.
[2021-08-21] MEDS: METOCLOPRAMIDE 10 MG/2 ML INJ IV (02:38)
[2021-08-21] MEDS: OXYCODONE IR 10 MG TABLET PO ×3 (05:38→10:51)
[2021-08-21] MEDS: ACETAMINOPHEN 325 MG TABLET 650 MG PO ×2 (05:38→12:05)
[2021-08-21 07:30] VITALS: BP 115/49; PULSE 94; RESP 18; TEMP 36.9; O2SAT 100
--- NOTE | 2021-08-21 07:48 | P.DS_ITS ---
History of Present Illness History of Present Illness Date Patient Seen: 08/21/21 Time Patient Seen: 07:49 Chief complaint: Left knee pain Narrative: Patient's left knee pain is mild to moderate this morning. Her nausea and vomiting has resolved. She notes she has no one to help her at home and would like to be discharged to a residential facility. Discharge Providers Provider Discharge Date: 08/21/21 Primary care physician: Whitney Lowry PA-C Consults: 08/19/21 08:06 Consult to Anesthesiology Routine Comment: Consulting Provider: Anesthesiologist Reason for consultation: Regional block for post operative pain control 08/19/21 17:52 Consult to Discharge Planning Routine Comment: Consult to Physical Therapy Evaluate & Treat Comment: Physician Instructions: postop TKA protocol Consult to Respiratory Therapy Evaluate & Treat Comment: Physician Instructions: Evaluate and treat 08/19/21 18:27 Consult to Dietitian, Adult Routine Comment: Reason For Exam: post op care Discharge provider: Monserrat Dent PA-C Summary Hospital Course Discharge Diagnosis: Severe left knee osteoarthritis Hospital Course: Operative Date/Time/Diagnoses Date of procedure: 08/19/21 Time of procedure: 14:10 Procedure & Clinicians Procedure: Left total knee arthroplasty Same procedure as scheduled: Yes Indications: The patient has had progressively worsening left knee pain with radiographic changes consistent with arthritis. Non-operative management has failed and the patient has requested total knee replacement.? She had severe left knee arthritis and really had moved her knee for about 5 years.? She had severe stiffness preoperatively with range of motion from about 20? to about 60-70 degrees.? Limits of our ability to completely correct this amount of deformity was discussed in detail.? The risks, benefits and alternatives to surgery were discussed with the patient prior to proceeding. Risks discussed included, but were not limited to, failure to relieve pain, stiffness, infection, nerve damage, deep venous thrombosis, pulmonary embolism, stroke, coma, heart attack, permanent paralysis and , as well as the potential need for eventual revision of the prosthetic. Surgeon: Mary Barrera Mds Nurse: Angel Cordero Anesthesia Type: General and Spinal Operative Notes Findings: Severe left knee osteoarthritis with a bony block posteriorly as well as severe patellofemoral arthritis with severe restricted range of motion even under anesthesia until a very extensive osteophytes were removed for adequate bone quality and stability.? For operative range of motion 0-125 with acceptable tracking of the patella, significantly deficient lateral femoral condyle with severe wear on severe lateral tibial wear. Closure Type: primary Specimen(s): none sent Prosthetic devices, grafts, tissues, transplants, or devices: Barrera and Nephnuno Navarro BCS 2 size 4 femur, size 5 tibia, +11 constrained poly, 32 x 7-1/2 mm patella Applied: drain(s) Estimated Blood Loss (mL): 250 Blood products transfused: none Tourniquet time (min): 108 Status at Discharge Cognitive/behavioral status at discharge: at baseline, oriented Functional status at discharge: uses cane/walker Overall status at discharge: patient is progressing back to baseline Exam Vital Signs (past 8 hours): - 08/21/21 02:15 08/21/21 07:30 Temperature 97.6 F 98.4 F Pulse Rate 100 H 94 H Respiratory Rate 16 18 Blood Pressure 148/87 H 115/49 L Pulse Oximetry 96 100 Oxygen Flow Rate 0 0 Oxygen Delivery Method Room Air Oxygen Flow Rate 0 Narrative Exam Narrative: Pleasant 70-year-old female, resting comfortably in bed, no acute distress. Cally Dressing is clean, dry, intact. Significant bilateral lower extremity edema. Bilateral lower extremity Ortiz calves are soft and nontender to palpation, motor functions are grossly intact, sensation is grossly intact to light touch. Objective Labs Result Diagrams: 08/20/21 04:23 [facility] Medical History Abdominal pain Depression Easy bruisability Fibromyalgia HTN (hypertension) HX: benign breast biopsy Osteoarthritis Pneumonia (~2011) Short-term memory loss (2009) Stomach tumor (benign) TBI (traumatic brain injury) (2009) Surgical History History of section History of hysterectomy History of left cataract extraction Hx of cholecystectomy Hx of LASIK Social History household members: none Smoking Status: Never smoker alcohol intake: never Discharge Assessment & Plan Assessment and Plan Assessment: Patient progressing as expected status post left total knee arthroplasty Plan of Treatment: Mobilize with physical therapy. Weightbearing as tolerated with front wheel walker Patient be maintained on total knee protocol Multimodal pain management -aspirin 81 mg twice daily x6 weeks for DVT prophylaxis -Discharge to SNF today today once cleared by Physical therapy Discharge Plan Discharge Plan Patient Disposition: SNF I certify the postop hospital residential care is medically necessary on a continuing basis for any conditions for which he/ she received care during this hospitalization.: Yes The receiving facility has agreed to accept transfer and provide medical treatment.: Yes Discharge orders & Medications Discharge Orders: Discharge (Order); Ordered 08/21/21 Ordered By: Monserrat Dent Prescriptions: New acetaminophen 325 mg Tablet 650 mg PO Q6HR Qty: 60 0RF polyethylene glycol 3350 17 gram Powder In Packet 17 gm PO DAILY PRN (Reason: Constipation) Qty: 20 0RF aspirin 81 mg Tablet,Delayed Release (Dr/Ec) 81 mg PO BID Qty: 60 0RF ibuprofen 400 mg Tablet 400 mg PO Q4HR Qty: 60 0RF oxycodone 5 mg Tablet 5 mg PO Q3HR PRN (Reason: Pain, Moderate (4-6)) Qty: 60 0RF calcium carbonate 200 mg calcium (500 mg) Tablet,Chewable 500 mg PO PRN PRN (Reason: Dyspepsia) Qty: 40 0RF docusate sodium 100 mg Capsule 100 mg PO BID PRN (Reason: constipation) Qty: 30 0RF ondansetron 4 mg Tablet,Disintegrating 4 mg PO Q4HR PRN (Reason: Nausea And Vomiting) Qty: 20 0RF oxycodone 5 mg capsule 5 mg PO Q4H PRN (Reason: pain) Qty: 42 0RF Continued losartan 50 mg Tablet 50 mg PO DAILY gabapentin 600 mg Tablet 600 mg PO BID alprazolam 1 mg Tablet 1 mg PO Q8H lamotrigine 100 mg Tablet 100 mg PO SEEINSTR Rx Instructions: 100mg qam, 150mg qpm rosuvastatin 10 mg Tablet 10 mg PO DAILY lithium carbonate 150 mg Capsule 150 mg PO BEDTIME Follow up/Referrals: Whitney Lowry PA-C [Primary Care Provider] - Mary Barrera MD [Physician] - (2 weeks) Diet/Activity/Treatments Diet: Diet as Tolerated Activity: Weight-bearing as tolerated Cold/Heat Therapy: Apply ice to knee as needed Skin/Wound/Dressing Care Report to your healthcare provider any signs of infection, such as:: chills, fever, increased pain, unusual drainage and unusual redness Dressing: Dressing/Wound care: -Remove the Terry wrap 48 hours after surgery. -Leave Cally dressing in place, cally dressing will automatically turned off in 5- 7 days, cut tubing at base of dressing and cover with bandaid from cally box, monitor can be thrown away and batteries recycled. -Okay to shower. Keep wound out of direct water stream. No soaking or submerging until all the scabs fall off (approximately 4-6 weeks). -No lotions, ointments, or scar creams directly to the incision until the wound is healed (4-6 weeks), -Please call the office if dressing becomes wet, soiled, or saturated. Activities: -Weight-bearing as tolerated. Use front wheeled walker, and progress to cane when safe. -Continue with home exercises as directed by your physical therapist. -Elevate ?toes above the nose if you have significant swelling in your lower leg. (A wedge pillow is easiest.) -Ice your incision as needed for pain/inflammation/swelling. Protect your skin with a folded pillowcase. -Incentive Spirometer (breathing device from hospital): 5-10xs every hour while awake for the first 1-2 weeks. Follow-up: -Follow-up with your surgeon or PA in the office in 10-14 days after surgery. -Follow-up with your surgeon 6 weeks postoperatively. Call the office if you have chest pain, shortness of breath, significant swelling that will not resolve with elevating, fever over 101?, significantly worsening pain. [facility]: [phone] Special Rehabilitation Services Reason for rehabilitation: Post-operative therapy Rehab type: Physical therapy Visit Report/Discharge Packet Instructions: DI for Knee Replacement Stand Alone Forms: Surgery Discharge Discharge Data Primary Care Provider: Whitney Lowry Attending Provider: Mary Barrera
[2021-08-21] MEDS: IBUPROFEN 400 MG TABLET PO ×2 (08:12→12:05)
[2021-08-21] MEDS: DOCUSATE 100 MG CAPSULE PO (08:13)
[2021-08-21] MEDS: lamoTRIgine 100 MG TABLET PO (08:13)
[2021-08-21] MEDS: ATORVASTATIN 20 MG TABLET PO (08:13)
[2021-08-21] MEDS: ASPIRIN EC 81 MG TABLET PO (08:13)
[2021-08-21] MEDS: GABAPENTIN 600 MG TABLET PO (08:13)
[2021-08-21] MEDS: ONDANSETRON 4 MG/2 ML INJ IV ×2 (08:21→12:09)
--- NOTE | 2021-08-21 08:41 | CM.DPC ---
DCP Cont: Spoke with [place] at this AM. can accept her at 1:30pm this afternoon. [place] requesting updated COVID swab prior to discharge. Order has been placed. DCP verbalized this information to the pt. Pt agreeable. DCP unable to speak with RN but will update her as soon as possible. P: Per , pt is medically stable for discharge. Pt will d/c to SNF this afternoon. Florecita Acevedo RN/DCP
[2021-08-21 09:48] LABS: COVID19 -Nasal RAPID Negative (Negative)
--- NOTE | 2021-08-21 10:27 | PT.IPTN ---
Current Diagnoses Unilateral primary osteoarthritis, left knee (08/20/21) Surgery Performed Operation Date: 08/19/21 14:30 Actual Procedures p Total Knee Arthroplasty(Left) - Mary Barrera MD Physical Therapy Treatment Note M2 PT-IP Current Condition Start: 08/20/21 11:33 Freq: NEEDED Status: Active Protocol: Document 08/20/21 08:45 AB (Rec: 08/20/21 11:46 AB [id number]) Physical Therapy Current Condition Current Condition Evaluation Date 08/20/21 Treatment Diagnosis s/p L TKA; difficulty in walking Onset Date 08/19/21 M3 PT-IP Subjective Start: 08/20/21 11:33 Freq: NEEDED Status: Active Protocol: Document 08/21/21 10:10 KS (Rec: 08/21/21 11:04 KS [id number]) Subjective Physical Therapy Visit Type Type Treatment Note Visit Start Time 10:10 Visit Stop Time 10:27 Total Visit Minutes 17 Number of MEDICAL CLERK Visits 1 Physical Therapy Visit Comments Patient Comments agreeable to do PT Therapy Pain Assessment Pain When Pain Assessed During Weight Bearing Pain Present Pain Present Pain Reported M4 PT-IP Mobility and Gait Start: 08/20/21 11:33 Freq: NEEDED Status: Active Protocol: Document 08/21/21 10:10 KS (Rec: 08/21/21 11:04 KS [id number]) PT-Bed Mobility Assessment Supine to Sit Supine to Sit Minimal Assistance,1 Person Assistance,Head of Bed Elevated Sit to Supine Sit to Supine Moderate Assistance,1 Person Assistance,Head of Bed Elevated Scooting Scooting to Edge of Bed Contact Guard Assistance PT-Transfer Assessment Sit to and From Stand Sit to and from Stand Moderate Assistance,1 Person Assistance,Use of Upper Extremities Equipment Transfer Assistive Device Gait Belt,Front Wheeled Walker Orthotic/Prosthetic Devices or Brace: No Transfers Transfer Destination Bed Transfer Technique Lateral steps Transfer Ability Level of Assist Moderate Assistance,1 Person Assistance,Use of Upper Extremities Comments Mobility Comments Pt in bed upon arrival and agreeable to participate w/ PT . Min A for sup<>sit for LLE assistance out of bed, CGA for scooting EOB. Pt c/o dizziness when sitting EOB that she states is normal for her. BP: 126/81. Pt then sit<> stand w/ FWW Mod A and cues for hand placement. Pt was still feeling dizzy when standing, but was able to take side steps towards the HOB and BP: 115/75. Pt requested to get back into bed and c/o increased pain. Mod A for sit< >sup. Pt left in bed w/ all needs in reach. RN aware of pts BP, dizziness, and pain. Gait Assessment Gait Gait Assistance Required: Moderate Assistance,1 Person Assist Distance (Feet) 2 Able to Maintain Weight Bearing Status Yes During Gait Assistive Devices Assistive Device Gait Belt,Front Wheeled Walker Orthotic/Prosthetic Devices or Brace: No Comments Gait Comments Few lateral steps towards HOB Mod A w/ FWW PT-Balance Assessment Sitting Balance and Reactions Static Sitting Balance Ability Good Dynamic Sitting Balance Ability Good Standing Balance and Reactions Static Standing Balance Ability Fair Dynamic Standing Balance Ability Fair Device Used FWW M5 PT-IP Objective Assessments Start: 08/20/21 11:33 Freq: NEEDED Status: Active Protocol: Document 08/20/21 08:45 AB (Rec: 08/20/21 11:46 AB [id number]) Orientation Orientation/Cognition Level of Alertness Alert Orientation Name,Place,Situation Language Function Ability No Deficits Noted Safety Awareness Decreased Safety Awareness Memory Description No Deficits Noted Gross Range of Motion Lower Extremity ROM Impairments R knee flexion: ~ 50 deg R knee extension: ~ 30 deg less to 0 Strength Comments Strength Comments LLE: 3+/5 RLE: 4-/5 Sensation Assessment Sensation Gross Sensation WNL Muscle Tone Muscle Tone WNL Yes M6 PT-IP Treatment Start: 08/20/21 11:33 Freq: NEEDED Status: Active Protocol: Document 08/21/21 10:10 KS (Rec: 08/21/21 11:04 KS [id number]) Physical Therapy Treatment Education Education Provided Weight Bearing Status,Safety M7 PT-IP Assessment and Plan Start: 08/20/21 11:33 Freq: NEEDED Status: Active Protocol: Document 08/21/21 10:10 KS (Rec: 08/21/21 11:04 KS [id number]) PT Summary Assessment and Plan Potential Rehabilitation Potential Fair Summary Impairments Pain,ROM,Strength,Balance, Coordination,Sensation,Tone, Cognition,Bed Mobility, Transfers,Gait,Activity Tolerance Progress Towards Goals Slow Progress due to Pain,Slow Progress due to Activity Tolerance Assessment Summary Pt limited by pain, weakness, and dizziness today. Min A for sup<>sit, Mod A for sit<> Stand w/ FWW and lateral steps towards HOB, Mod A for sit<> sup. Pt unable to progress ambulation due to reported dizziness. BP: 126/81 sitting, 115/75 standing. She will require SNF to improve strength, activty tolerance, and functional mobility independence. Goals Bed Mobility Goal Independent Transfer Goal Independent,Front Wheeled Walker Gait Goal Independent,Front Wheel Walker Gait Distance 200 Days to Meet Goals 10 Frequency of Treatment Frequency Of Treatment Twice a Day Treatment Plan Physical Therapy Treatment Plan Bed Mobility Training,Transfer Training,Gait Training, Therapeutic Exercise,Balance Retraining,Post Op Education, Discharge Planning,Hot or Cold Pack,Neuromuscular Re-ed, Coordination Retraining,Manual Therapy Weight Bearing Status Weight Bearing Status Weight Bear as Tolerated Allowed Weight Bearing Amount (enter % LLE WBAT or #) (%) Recommendations To Nursing Amount of Assist Needed 1 Person Assist Discharge Recommendations PT Discharge Recommendations SNF Rehab Transportation Needs at Discharge Wheelchair/Cabulance
[2021-08-21 11:08] VITALS: BP 130/52; PULSE 91; RESP 18; TEMP 36.9; O2SAT 100
== END 2021-08-21 13:51 | disposition home or self-care (01) ==
LOC: OR 08-21 08:58 → AC 08-21 08:58
PROVIDERS: Physician Assistant; Admitting Provider Orthopaedic Surgery; Family Provider Internal Medicine; PCP Physician Assistant; Referring Provider Nurse Practitioner Family; Visit Provider Orthopaedic Surgery
PROC: 0SRD0JZ Replacement of Left Knee Joint with Synthetic Substitute, Open Approach (ICD-10-PCS; CPT 27447; principal; 2021-08-19 14:30)
DX: M17.12 Unilateral primary osteoarthritis, left knee (principal); I10 Essential (primary) hypertension; K21.9 Gastro-esophageal reflux disease without esophagitis; E66.9 Obesity, unspecified; Z68.34 Body mass index [BMI] 34.0-34.9, adult
CPT/HCPCS: 27447; 36415; 64450; 73560; 85014; 85018; 87635; 97162; 97530; C1776; C9803; G0378; C1713; C9290; J0171; J0690; J2250; J2405; J2704; J2765; J3010